=== PATIENT | male | born 1945 | race Caucasian/White ===

== ENCOUNTER → 2017-04-19 11:43 | Day surgery (SDC) | payer MEDICARE, OTHER ==
[~2017-04-19] VITALS: Ht 175.3 cm; Wt 104.5 kg
--- NOTE | ~2017-04-19 | OP ---
PATIENT NAME: HILARY NAVARRETE MEDICAL RECORD: [id number] :43 LOCATION:D[facility] ADMISSION DATE: SURGEON: QUETA STOREY DO DATE OF OPERATION: 04/19/2017 PROCEDURE: Colonoscopy with polypectomy. INDICATIONS FOR PROCEDURE: Screening for colorectal cancer. SCOPE: Olympus video pediatric colonoscope. MEDICATIONS: Propofol 500 mg IV per anesthesia. WITHDRAWAL TIME: 28 minutes. ESTIMATED BLOOD LOSS: Minimal. COMPLICATIONS: None. FINDINGS: Informed consent was given. The patient was made comfortable with the above medication. After reaching an adequate level of sedation by slow IV push, the patient was placed on his left side. A digital rectal examination was performed, and was normal other than some prostatic hypertrophy. There were no nodules palpated on the prostate dorsal side. The endoscope was then advanced under direct visualization through the rectum to the terminal ileum. The scope was slowly withdrawn. The mucosa was carefully examined. There was evidence of severe pandiverticulosis, consisting of both small and large-mouth diverticuli. There was no evidence of diverticulitis or bleeding. In the descending colon, there was a single polyp, which was benign-appearing and sessile. It was located over a fold, and measured approximately 9 mm in size. Due to its location, hot forceps were used to piecemeal-resect and fulgurate the polyp. There were 6 polyps total in the rectum, which were benign-appearing and flat. They ranged in size from approximately 4 mm in diameter to 8 mm in diameter. All were removed using a hot snare. Retroflexion was performed in the rectum with visualization of small nonbleeding internal hemorrhoids. The scope was then completely withdrawn from the patient. The patient tolerated the procedure well, and there were no complications. IMPRESSIONS: 1. Multiple polyps as described above, removed with a combination of hot forceps and hot snare polypectomy. 2. Severe pandiverticulosis. 3. Small nonbleeding internal hemorrhoids. PLAN AND RECOMMENDATIONS: 1. Discharge home when recovery parameters are met. 2. Follow up biopsy specimen results. 3. High fiber diet. 4. Continue current medications. 5. Repeat colonoscopy in 2 years. TRANSINT:[id number] Voice Confirmation ID: [id number] DOCUMENT ID: [id number] OPERATIVE REPORT [id number] HILARY NAVARRETE QUETA STOREY DO CC: [id number] DICTATION DATE: 04/19/17 1525 PROFESSOR OF SPECIAL EDUCATION: 04/19/172027 [facility] 04/19/17 [place] [id number] [place] [id number]
[~2017-04-19 11:43] MED LIST: BAYER CHEWABLE81 MG PO; CARDIZEM CD180 MG PO; CELEXA20 MG PO; ELIQUIS5 MG; FUROSEMIDE40 MG PO; IPRAT-ALBUT 0.5-3 ML UPD; K-DUR20 MEQ PO; KEFLEX500 MG PO; LOPRESSOR25 MG PO; MULTI-DAY VITAM1 TAB PO; NAPROSYN250 MG PO; NORVASC5 MG PO; PERCOCET 10/3251 TA1 PO; PRAVACHOL20 MG PO; PRINZIDE 20/12.1 TAB; PROVENTIL HFA6.7 GM INH; RYTHMOL SR225 MG PO; SPIRIVA18 MCG INH
[2017-04-19 12:43] VITALS: BP 146/87; Ht 175.3 cm; Wt 104.5 kg
[2017-04-19 12:57] LABS: BASOPHILS 0.3 % (0-2); EOSINOPHILS 0.3 % (0-7); HEMATOCRIT 48.4 % (42.0-54.0); HEMOGLOBIN 16.6 g/dL (13.5-17.5); IMMATURE GRANULOCYTES 0.1 % (0-5); LYMPHOCYTES 28.5 % (15-50); MCH 35.6 pg (26.0-34.0); MCHC 34.3 g/dL (31.0-37.0); MCV 103.9 fL (80.0-100.0); MEAN PLATELET VOLUME 10.1 fL (7.4-10.4); MONOCYTES 9.3 % (2-11); NEUTROPHILS 61.5 % (40-80); RBC 4.66 10x6/uL (4.20-6.10); RDW 14.4 % (11.5-14.5); WBC 6.7 10x3/uL (4.8-10.8)
[2017-04-19 13:07] LABS: CALC OSMOLALITY 287 mosm/kg (275-300); CALCIUM 8.4 mg/dL (8.5-10.1); CARBON DIOXIDE 31.2 mmol/L (21.0-32.0); CHLORIDE - SERUM 105 mmol/L (98-107); CREATININE - SERUM 0.9 mg/dL (0.6-1.3); GLUCOSE 129 mg/dL (74-106); POTASSIUM - SERUM 3.8 mmol/L (3.5-5.1); SODIUM 144 mmol/L (136-145); UREA NITROGEN 9 mg/dL (7-18); eGFR NON AFRICAN AMERICAN 88 mL/min (90-120)
[2017-04-19 13:12] LABS: PLATELET COUNT 224 10x3/uL (130-400)
--- NOTE | 2017-04-19 16:37 | NUR ---
0434 DISCHARGE INSTRUCTIONS COMPLETE. PT HAS NO QUESTIONS OR CONCERNS. ESCORTED OUT BY MYSELF.
== END | disposition home or self-care (01) ==
LOC: D.OPS 11:43
PROVIDERS: Anesthesiology
DX: Z12.11 Encounter for screening for malignant neoplasm of colon (principal); D12.4 Benign neoplasm of descending colon; K62.1 Rectal polyp; F17.200 Nicotine dependence, unspecified, uncomplicated; J45.909 Unspecified asthma, uncomplicated; I10 Essential (primary) hypertension; J44.9 Chronic obstructive pulmonary disease, unspecified; G47.30 Sleep apnea, unspecified; Z01.812 Encounter for preprocedural laboratory examination; K64.8 Other hemorrhoids

== ENCOUNTER 2018-06-06 12:25 | Emergency (ER) | payer MEDICARE, OTHER ==
[~2018-06-06] VITALS: Ht 175.3 cm; Wt 106.8 kg
[2018-06-06 12:56] VITALS: Ht 175.3 cm; Wt 106.8 kg
[2018-06-06 13:42] LABS: BASOPHILS 0.4 % (0-2); EOSINOPHILS 2.3 % (0-7); HEMOGLOBIN 17.8 g/dL (13.5-17.5); IMMATURE GRANULOCYTES 0.2 % (0-5); LYMPHOCYTES 31.9 % (15-50); MCH 35.8 pg (26.0-34.0); MCHC 35.6 g/dL (31.0-37.0); MCV 100.6 fL (80.0-100.0); MEAN PLATELET VOLUME 10.3 fL (7.4-10.4); MONOCYTES 13.5 % (2-11); NEUTROPHILS 51.7 % (40-80); PLATELET COUNT 214 10x3/uL (130-400); RBC 4.97 10x6/uL (4.20-6.10); RDW 14.1 % (11.5-14.5); WBC 8.4 10x3/uL (4.8-10.8)
[2018-06-06 13:58] LABS: ALBUMIN 3.2 g/dL (3.4-5.0); ALKALINE PHOSPHATASE 81 U/L (46-116); ALT (SGPT) 20 U/L (10-68); BILIRUBIN - TOTAL 0.45 mg/dL (0.2-1.3); CALC OSMOLALITY 279 mosm/kg (275-300); CALCIUM 8.3 mg/dL (8.5-10.1); CARBON DIOXIDE 30.2 mmol/L (21.0-32.0); CHLORIDE - SERUM 101 mmol/L (98-107); CREATININE - SERUM 1.4 mg/dL (0.6-1.3); GLUCOSE 120 mg/dL (74-106); POTASSIUM - SERUM 4.5 mmol/L (3.5-5.1); PROTEIN - SERUM 6.9 g/dL (6.4-8.2); SODIUM 138 mmol/L (136-145); UREA NITROGEN 20 mg/dL (7-18); eGFR NON AFRICAN AMERICAN 53 mL/min (90-120)
[2018-06-06 14:10] LABS: CKMB 1.4 U/L (0.0-3.6); CREATINE KINASE 54 UL (21-232); PRO BNP 544 pg/mL (0-125)
[2018-06-06 14:12] LABS: TROPONIN-I < 0.017 ng/mL (0.000-0.060)
[2018-06-06 15:17] VITALS: BP 113/59
== END 2018-06-06 15:12 | disposition home or self-care (01) ==
LOC: D.ER 12:25
PROVIDERS: Emergency Medicine
DX: I95.9 Hypotension, unspecified (principal)

== ENCOUNTER → 2018-12-27 11:00 | Outpatient (CLI) | payer MEDICARE, OTHER ==
--- NOTE | 2018-12-28 15:13 | EC ---
PATIENT:HILARY NAVARRETE JR DATE OF SERVICE: 12/27/18 SEX: M MEDICAL RECORD: [id number] DATE OF : 43 [facility] AGE OF PATIENT: 73 ADMISSION DATE: 12/27/18 REFERRING PHYSICIAN: INTERPRETING PHYSICIAN: RIO GARCIA MD ECHOCARDIOGRAM REPORT ECHO CHARGES 4 ECHO COMPLETE Date: 12/27/18 CLINICAL DIAGNOSIS: AFIB, AI/ HX OF COPD/HTN ECHOCARDIOGRAPHIC MEASUREMENTS (adult normal given) AC root (d.<3.7cm) 3.9 cm LV Septum d (<1.2 cm> 1.4 cm Valve Excursion 1.7 cm LV Septum (systole) 1.6 cm Left Atria (s.<4.0cm> 5.1 cm LVPW d(<1.2cm) 1.6 cm RV (d.<2.3cm) 3.0 cm LVPW (sytole) 2.1 cm LV diastole(<5.6CM) 4.4 cm MV E-F(>70mm/sec) cm LV systole 3.1 cm LVOT Diameter 1.5 cm MV exc.(>10mm) 1.1 cm Est.ejection fraction (50-75%) % DOPPLER: LVIT cm/sec A cm/sec E 122 cm/sec LA cm/sec RVSP 48 mmHg LVOT 112 cm/sec AOP1/2T 762 m/s Asc. Ao 217 cm/sec RVOT 70 cm/sec RA cm/sec PA 113 cm/sec AV Gradient Peak 18.77mmHg AV Mean 11.14mmHg AV Area 2.9 cm MV Gradient Peak 11.73mmHg MV Mean 3.49 mmHg MV Area cm COMMENTS: Rug Clipper: Thomas VAUGHAN Mail List Librarian: 1 Dr. Garcia TAPE# PACS Pericardial Effusion N DATE OF SERVICE: 12/27/2018 PROCEDURE: Echocardiogram. FINDINGS: 1. Left ventricular chamber size is within normal limits. Left ventricular systolic function is normal. Overall ejection fraction estimated at 55%. 2. Left atrium is enlarged at 5.1 cm. Right atrium and right ventricular chamber sizes are as well mildly dilated. 3. Valvular structures: Aortic valve demonstrates mild calcific aortic ECHOCARDIOGRAM REPORT [id number] HILARY NAVARRETE SEGUN J stenosis. There is a gradient of 18 mm across the valve. The remaining valvular structures have normal structure and motion. 4. Doppler interrogation elsewise reveals mild aortic insufficiency, mild mitral regurgitation, mild tricuspid regurgitation, no other valvular insufficiency or stenosis. Pulmonary systolic pressure is estimated 48 mmHg. 5. No evidence of pericardial effusion or left ventricular thrombus. TRANSINT:[id number] Voice Confirmation ID: [id number] DOCUMENT ID: [id number] RIO GARCIA MD at 1513 CC: [id number] DICTATION DATE: 12/28/18 0857 TRAVOGRAPH OPERATOR: 12/28/18 1203 DEP CLI 12/27/18 [place] [id number] [place] [address]
== END | disposition home or self-care (01) ==
LOC: D.HCCARDIO 11:00
DX: I48.91 Unspecified atrial fibrillation (principal)